=== PATIENT | female | born 1945 | race Asian ===

== ENCOUNTER 2022-09-05 18:07 | Emergency (ER) | payer BC, MEDICARE ==
[~2022-09-05] VITALS: Ht 152.4 cm; Wt 48.0 kg
[2022-09-05 18:09] VITALS: BP 144/64
[2022-09-05] MEDS ORDERED: ACETAMINOPHEN 325MG TABLET PO STA (19:07)
[2022-09-05] MEDS ORDERED: METOCLOPRAMIDE HCL 10MG/2ML VIAL IV ONE (19:15)
[2022-09-05] MEDS ORDERED: MECLIZINE 25MG TABLET PO ONE (19:15)
[2022-09-05] MEDS ORDERED: SODIUM CHLORIDE 0.9% 1,000 ML IV ONE (19:15)
[2022-09-05 19:45] LABS: CHLORIDE 106 mEq/L (98-107)
[2022-09-05 19:52] LABS: BASOPHILS % 0.3 % (0.0-2.0); EOSINOPHILS % 0.3 % (0.0-5.0); HEMATOCRIT. 41.7 % (36.0-48.0); HEMOGLOBIN. 14.3 g/dL (12.0-16.0); LYMPHOCYTES % 8.2 % (20.0-50.0); MEAN CORPUSCULAR HEMOGLOBIN 32.6 pg (28.0-32.0); MONOCYTES % 3.9 % (2.0-8.0); NEUTROPHILS % 87.3 % (40.0-76.0); PLATELET 209 x1000/uL (130-400); RED BLOOD CELL COUNT 4.39 mill/uL (4.2-5.4)
[2022-09-05] MEDS ORDERED: POTASSIUM CHLORIDE 20MEQ TABLET SR PO ONE (20:15)
[2022-09-05] MEDS: MECLIZINE 12.5MG TABLET PO NR ×2 (21:03→21:04)
== END 2022-09-05 22:30 | disposition home or self-care (01) ==
LOC: ER 18:07
DX: R51.9 Headache, unspecified (principal); R42 Dizziness and giddiness; I10 Essential (primary) hypertension; Z88.0 Allergy status to penicillin
CPT/HCPCS: 36415; 70450; 71045; 80053; 84484; 85025; 93005; 99285; J2765; J7030; J8597